=== PATIENT | male | born 1980 | race Asian ===

== ENCOUNTER 2017-07-16 19:46 | Inpatient (IN) | payer SELFPAY ==
[~2017-07-16] VITALS: Ht 188 cm; Wt 83.9 kg
[2017-07-16] MEDS ORDERED: Morphine Sulfate 4mg/ml Inj IM ONE (20:00)
--- NOTE | 2017-07-16 20:47 | Emergency Room Report ---
History of Present Illness General Chief Complaint: Back Pain-No Injury Source: Patient Present Illness HPI 36-year-old male presents to ED for evaluation. Patient complaining of back pain since this morning. Received epidural injection but states since then he' s had increased back pain and weakness in both legs. Pain is 10 out of 10, sharp, radiating down both legs. Denies fevers or chills. Denies chest pain or shortness of breath. Was referred by pain management Dr Sarah. No other aggravating or relieving factors. Denies any other associated symptoms Allergies: Coded Allergies: No Known Allergies (Unverified , 07/16/17) Patient History Past Medical History: none Past Surgical History: none Pertinent Family History: none Social History: Denies: smoking, alcohol use, drug use Immunizations: UTD Reviewed Nursing Documentation: PMH: Agreed; PSxH: Agreed Nursing Documentation-PMH Past Medical History: No Stated History Review of Systems All Other Systems: negative except mentioned in HPI Physical Exam Vital Signs Date Time Temp Pulse Resp B/P (MAP) Pulse Ox O2 Delivery O2 Flow Rate FiO2 07/16/17 19:55 97.3 62 23 123/79 99 Room Air 97.3 Sp02 EP Interpretation: reviewed, normal General Appearance: alert, GCS 15, non-toxic, severe distress Head: normocephalic, atraumatic Eyes: bilateral eye normal inspection, bilateral eye PERRL ENT: hearing grossly normal, normal pharynx, no angioedema, normal voice Neck: full range of motion, supple/symm/no masses Respiratory: chest non-tender, lungs clear, normal breath sounds, speaking full sentences Cardiovascular #1: regular rate, rhythm, no edema Cardiovascular #2: 2+ carotid (R), 2+ carotid (L), 2+ radial (R), 2+ radial (L) , 2+ dorsalis pedis (R), 2+ dorsalis pedis (L) Gastrointestinal: normal bowel sounds, non tender, soft, non-distended, no guarding, no rebound Rectal: deferred Genitourinary: normal inspection, no CVA tenderness, vertebral tenderness Musculoskeletal: gait/station normal, normal range of motion, non-tender Neurologic: alert, oriented x3, responsive, motor strength/tone normal, speech normal, sensory deficit - bilateral LEs Psychiatric: judgement/insight normal, memory normal, mood/affect normal, no suicidal/homicidal ideation Reflexes: 3+ bicep (R), 3+ bicep (L), 3+ tricep (R), 3+ tricep (L), 3+ knee (R) , 3+ knee (L) Skin: normal color, no rash, warm/dry, well hydrated Lymphatic: no adenopathy Procedures Critical Care Time Critical Care Time i. I feel this is a highly complex case requiring extensive working including EKG/Rhythm strip, Xray/CT/US, Blood/urine lab work, repeat exams while in ED, and administration of strong opiates/narcotics for pain control, admission to hospital or close patient follow up. Total time: 30 min bedside evaluation and treatment excludes procedures (EKG). Reason for critical care: back pain, weakness in legs, epidural hematoma, cord compression Possible complications: hypotension, hypertension, ND, shock, arrhythmias, metabolic acidosis, end organ damage, respiratory failure. Interventions: MRI, labs, pain meds, consultation with back surgery Course: patient presenting with back pain, leg weakness s/p epidural injection.MRI shows epidural hematoma from C3 to mid thoracic spine. largest component at T1-T2 with canal stenosis and cord compression. case discussed with Dr Centeno who will take patient to OR Consultations: nursing staff, EMS, family Performed by: Dr Vega Tolerated well condition = serious j. because of unstable vital signs this patient had a condition that could potentially threaten life or limb. I feel this is a critical patient who required my full attention while patient was considered critical. 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 largest component at T1-T2 with severe stenosis and cord compression Labs - pending patient has motor function in his lower extremities, but sensory deficit Dr Sarah (pain management) at bedside; he will admit patient. Dr Centeno contacted and he will take patient to OR tonight I feel this is a highly complex case requiring extensive working including EKG/ Rhythm strip, Xray/CT/US, Blood/urine lab work, repeat exams while in ED, and administration of strong opiates/narcotics for pain control, admission to hospital or close patient follow up. Diagnosis - back pain, epidural hematoma, cord compression Patient admitted to floor in serious condition CT/MRI/US Diagnostic Results CT/MRI/US Diagnostic Results #1: Imaging Test Ordered: MRI C spine Impression C5-C6 osteophytes. epidural hematoma from C3 to mid thoracic CT/MRI/US Diagnostic Results #2: Imaging Test Ordered: MRI T spine Impression epidural hematoma from C3 through mid thoracic spine. T1-T2 severe canal stenosis, mild cord compression CT/MRI/US Diagnostic Results #3: Imaging Test Ordered: MRI L spine Impression no acute process. mild degenerative disease without high grade canal or foraminal stenosis. Last Vital Signs Date Time Temp Pulse Resp B/P (MAP) Pulse Ox O2 Delivery O2 Flow Rate FiO2 07/16/17 20:01 97.3 07/16/17 19:55 62 23 123/79 99 Room Air Status: improved Disposition: ADMITTED INPATIENT Condition: Serious Scripts No Active Prescriptions or Reported Meds Referrals: NOT CHOSEN IPA/,REFERRING (PCP) Issac Vega MD July 16, 2017 20:47
[2017-07-16 21:30] VITALS: BP 125/80
[2017-07-16 22:49] VITALS: BP 130/77
[2017-07-16 23:24] LABS: BASOPHILS % (AUTO) 0.5 % (0.0-2.0); EOSINOPHILS % (AUTO) 0.1 % (0.0-3.0); HEMATOCRIT 44.5 % (42.0-52.0); HEMOGLOBIN 16.9 G/DL (14.2-18.0); MEAN CORPUSCULAR VOLUME 87 FL (80-99); MONOCYTES % (AUTO) 2.8 % (1.0-10.0); NEUTROPHILS % (AUTO) 84.7 % (45.0-75.0); PLATELET COUNT 227 K/UL (150-450); RED BLOOD COUNT 5.14 M/UL (4.70-6.10); RED CELL DISTRIBUTION WIDTH 9.7 % (11.6-14.8); WHITE BLOOD COUNT 9.6 K/UL (4.8-10.8)
[2017-07-17 00:02] LABS: ANION GAP 9 mmol/L (5-15); BLOOD UREA NITROGEN 11 mg/dL (7-18); CALCIUM 9.4 MG/DL (8.5-10.1); CARBON DIOXIDE 27 MMOL/L (21-32); CHLORIDE 103 MMOL/L (98-107); CREATININE 0.8 MG/DL (0.55-1.30); POTASSIUM 3.9 MMOL/L (3.5-5.1); SODIUM 139 MMOL/L (136-145)
[2017-07-17 00:07] LABS: ALANINE AMINOTRANSFERASE 28 U/L (12-78); ALBUMIN 4.3 G/DL (3.4-5.0); ALBUMIN/GLOBULIN RATIO 1.2 (1.0-2.7); ALKALINE PHOSPHATASE 59 U/L (46-116); ASPARTATE AMINO TRANSFERASE 20 U/L (15-37); BILIRUBIN,TOTAL 0.7 MG/DL (0.2-1.0)
[2017-07-17 01:12] VITALS: BP 119/75
--- NOTE | 2017-07-17 01:12 | History and Physical ---
History of Present Illness General Date patient seen: July 17, 2017 Reason for Hospitalization: Back Pain-No Injury Present Illness HPI Pt s/p cervical epidural injection. he developed severe back pain after injection. He called me at 5:30 pm on July 16, 2017 and I asked him to come to ER in [facility].He arrived at 7:30 pm. I arranged with Dr. Vega for emergency MRI, which was done. At this time pt did not show motor deficit but was guarding due to pain and examination was difficult to perform by ER doctor. I personally arrived at bedside and examined the pt after reviewing the MRI. In the meanwhile also Dr. Centeno was contacted and he was willing to come and see the pt in case of emergency surgery. Pt was examined by Dr. Centeno and risk and benefit of sx was d/w him. He had some minor motor weakness in lower extremity with more of the numbness in b/l lower extremity. he felt that his back pain is relieved and feels better with his upper body. He was also able to stand up and walk few steps without problem. So he decided to wait in hospital until tomorrow to see how is it going to change. Allergies: Coded Allergies: No Known Allergies (Unverified , 07/16/17) Medication History No Active Prescriptions or Reported Meds Patient History Healthcare decision maker Resuscitation status Advanced Directive on File Physical Exam General Appearance: WD/WN HEENT: normocephalic, atraumatic Neck: supple Respiratory/Chest: lungs clear Cardiovascular/Chest: normal rate Abdomen: non tender, soft Extremities: normal range of motion, non-tender Neurologic: chute boss II-XII grossly normal, alert, oriented x 3, responsive, sensory deficit - b/l lower extremity to pinprick is diminished Last 24 Hour Vital Signs Date Time Temp Pulse Resp B/P (MAP) Pulse Ox O2 Delivery O2 Flow Rate FiO2 07/16/17 22:49 93 12 130/77 97 Room Air 07/16/17 21:30 99.3 95 15 125/80 98 Room Air 99.3 07/16/17 20:31 99.3 07/16/17 20:01 97.3 07/16/17 19:55 97.3 62 23 123/79 99 Room Air 97.3 Intake and Output 07/16/17 07/17/17 19:00 07:00 Intake Total 1000 ml Balance 1000 ml Intake IV Total 1000 ml Laboratory Tests Test 07/16/17 23:13 White Blood Count 9.6 K/UL (4.8-10.8) Red Blood Count 5.14 M/UL (4.70-6.10) Hemoglobin 16.9 G/DL (14.2-18.0) Hematocrit 44.5 % (42.0-52.0) Mean Corpuscular Volume 87 FL (80-99) Mean Corpuscular Hemoglobin 32.9 PG (27.0-31.0) H Mean Corpuscular Hemoglobin Concent 38.0 G/DL (32.0-36.0) H Red Cell Distribution Width 9.7 % (11.6-14.8) L Platelet Count 227 K/UL (150-450) Mean Platelet Volume 6.0 FL (6.5-10.1) L Neutrophils (%) (Auto) 84.7 % (45.0-75.0) H Lymphocytes (%) (Auto) 12.0 % (20.0-45.0) L Monocytes (%) (Auto) 2.8 % (1.0-10.0) Eosinophils (%) (Auto) 0.1 % (0.0-3.0) Basophils (%) (Auto) 0.5 % (0.0-2.0) Prothrombin Time 10.0 SEC (9.30-11.50) Prothromb Time International Ratio 1.0 (0.9-1.1) Activated Partial Thromboplast Time 25 SEC (23-33) Sodium Level 139 MMOL/L (136-145) Potassium Level 3.9 MMOL/L (3.5-5.1) Chloride Level 103 MMOL/L (98-107) Carbon Dioxide Level 27 MMOL/L (21-32) Anion Gap 9 mmol/L (5-15) Blood Urea Nitrogen 11 mg/dL (7-18) Creatinine 0.8 MG/DL (0.55-1.30) Estimat Glomerular Filtration Rate > 60 mL/min (>60) Glucose Level 100 MG/DL (74-106) Calcium Level 9.4 MG/DL (8.5-10.1) Total Bilirubin 0.7 MG/DL (0.2-1.0) Aspartate Amino Transf (AST/SGOT) 20 U/L (15-37) Alanine Aminotransferase (ALT/SGPT) 28 U/L (12-78) Alkaline Phosphatase 59 U/L (46-116) Total Protein 8.0 G/DL (6.4-8.2) Albumin 4.3 G/DL (3.4-5.0) Globulin 3.7 g/dL Albumin/Globulin Ratio 1.2 (1.0-2.7) Height (Feet): 6 Height (Inches): 2.00 Weight (Pounds): 185 Assessment/Plan Problem List: (1) Back pain ICD Codes: M54.9 - Dorsalgia, unspecified SNOMED: 674736277 Qualifiers: Qualified Codes: M54.6 - Pain in thoracic spine (2) Cord compression ICD Codes: G95.20 - Unspecified cord compression SNOMED: 51712295 (3) Epidural hematoma ICD Codes: S06.4X9A - Epidural hemorrhage with loss of consciousness of unspecified duration, initial encounter SNOMED: 680299038 Assessment/Plan Pt was seen by Dr. Centeno and has decided to wait on surgery. Will admit pt to Med surge Will keep him NPO for possible surgery option IVF 125 ml per hour Fall precautions Neurocheck Q 1 hour Vital signs as protocol KAYE SMITH July 17, 2017 01:12
[2017-07-17] MEDS ORDERED: LR 1000ml 1,000 ML IV SCH (02:00)
[2017-07-17 04:00] VITALS: BP 125/76
--- NOTE | 2017-07-17 04:45 | Consultation ---
DATE OF CONSULTATION: 07/17/2017 TIME: 12:33 a.m. CONSULTING PHYSICIAN: Itz Centeno M.D. CHIEF COMPLAINT: 0Weakness in lower extremities and pain. HISTORY OF PRESENT ILLNESS: This is a 36-year-old gentleman who I visited in the emergency room after a call from Dr. Sarah. The call was received at 11:25 p.m. on 07/16/2017. The physician had performed a epidural steroid injection of the cervical spine and was notified by the patient that he was having progressive pain and Dr. Sarah asked the patient come to the emergency room. An MRI was obtained. There was noted posterior spinal cord epidural hematoma from approximately C7 through T3. The patient had difficulty with urination with possibly some retention. He had mostly pain; however, this was treated with medications and he had numbness in the lower extremities, especially in the left side anterior thigh. The patient was ambulatory. He was evaluated by emergency room physician and I evaluated the patient as soon as I drove into the emergency room. I had a long discussion with the patient. The patient denies any other medical problems. He is in pain. He has not eaten since at least 10-12 hours or had any water at least 10 or 12 hours ago. PAST MEDICAL HISTORY: None. PAST SURGICAL HISTORY: None per chart. The history is obtained from the chart and is as listed in [facility] EHR system. REVIEW OF SYSTEMS: Also negative. PHYSICAL EXAMINATION: GENERAL: The patient is a tall, slender [place] male in no acute distress. There is minimal distress due to pain. The patient is ambulatory, however; has difficulty with urination and has some tension. NEUROLOGIC: The upper extremity demonstrate 5/5 strength except left intraosseous was 4+. Sensation was intact. Bilateral lower extremity strength was 5/5 in the right lower extremity except right EHL, which was 4+ and left hip flexor was 4+, left EHL was 5-. Sensation was slightly diminished in the left groin area and somewhat diminished in the left anterior thigh. Reflexes were 3+ in the quadriceps, 1+ in Achilles, and 1+ in biceps and triceps. Lila signs are negative. There was no clonus and Babinski were downgoing. Pulses were intact. The patient had a small Band-Aid in the cervical thoracic junction from the epidural steroid injection. LABORATORY AND DIAGNOSTIC DATA: MRI personally reviewed by me demonstrates a CT and L-spine with circular mass most likely a fluid collection such as blood noted at the cervical thoracic junction, most likely from C7 down to T3 with most compression of the left side of the spinal cord. There is stenosis noted. The cord had slight change in shape, especially at the T1 level. IMPRESSION: Posterior cervical thoracic hematoma with mild neurologic deficit and possible urinary retention. RECOMMENDATION: Postvoid residual was requested. I discussed with the patient of cervicothoracic laminectomy from C7 through T1 on emergency basis. Risks of surgery include failure to pain, recurrent hematoma and permanent neurologic deficit, which is mild at this point as well as other urinary complications, progressive neurologic deficit despite surgery spinal cord injury. The patient understood the risks and at this point, is holding off from surgery. He is there with a friend who is also aware of the patient's condition. There was no language barrier between with communication with the patient, as the friend also spoke [place] and the patient also spoke [place]. The risks of not performing surgery is permanent neurologic deficit. Alternative surgery are continue to monitor on hourly basis neurologic condition and wait for the hematoma to resolve, which may occur on its own. This was also discussed with the patient and the patient with this point will await and treat nonoperatively. Itz Centeno M.D. DR: TRUPTI JOB#: [id number] CC:
[2017-07-17 08:45] VITALS: BP 115/60
--- NOTE | 2017-07-17 10:00 | General Progress Note ---
Assessment/Plan Assessment/Plan (1) Back pain (2) Cord compression (3) Epidural hematoma Patient will be started on Regular diet and we will order f/u MRI of Cervical and Thoracic spine w/o contrast. Pt seen and examined with Dr. Sarah. Subjective Date patient seen: July 17, 2017 Time patient seen: 08:45 Constitutional: Reports: no symptoms HEENT: Reports: no symptoms Cardiovascular: Reports: no symptoms Respiratory: Reports: no symptoms Gastrointestinal/Abdominal: Reports: no symptoms Genitourinary: Reports: no symptoms Neurologic/Psychiatric: Reports: no symptoms Endocrine: Reports: no symptoms Hematologic/Lymphatic: Reports: no symptoms Allergies: Coded Allergies: No Known Allergies (Unverified , 07/16/17) Subjective Patient is in bed Dr. Sarah evaluating the patient. Patient reports that he is feeling better and his pain has reduced. He also has sensation back to his legs. Dr. Sarah advised patient that he will be starting PT and waiting for neurosurgeon follow up. We will order another MRI of Cervical and Thoracic spine for evaluation of the epidural hematoma. Objective Last 24 Hour Vital Signs Date Time Temp Pulse Resp B/P (MAP) Pulse Ox O2 Delivery O2 Flow Rate FiO2 07/17/17 08:45 98.4 91 20 115/60 97 98.4 07/17/17 04:00 98.2 87 18 125/76 99 98.2 07/17/17 01:40 98.6 93 12 119/75 96 Room Air 98.6 07/17/17 01:12 98.6 93 12 119/75 96 Room Air 98.6 07/16/17 22:49 93 12 130/77 97 Room Air 07/16/17 21:30 99.3 95 15 125/80 98 Room Air 99.3 07/16/17 20:31 99.3 07/16/17 20:01 97.3 07/16/17 19:55 97.3 62 23 123/79 99 Room Air 97.3 Intake and Output 07/16/17 07/17/17 19:00 07:00 Intake Total 1000 ml Balance 1000 ml Intake IV Total 1000 ml # Voids 2 Laboratory Tests 07/16/17 23:13: White Blood Count 9.6, Red Blood Count 5.14, Hemoglobin 16.9, Hematocrit 44.5, Mean Corpuscular Volume 87, Mean Corpuscular Hemoglobin 32.9H, Mean Corpuscular Hemoglobin Concent 38.0H, Red Cell Distribution Width 9.7L, Platelet Count 227, Mean Platelet Volume 6.0L, Neutrophils (%) (Auto) 84.7H, Lymphocytes (%) (Auto) 12.0L, Monocytes (%) (Auto) 2.8, Eosinophils (%) (Auto) 0.1, Basophils (%) (Auto ) 0.5, Prothrombin Time 10.0, Prothromb Time International Ratio 1.0, Activated Partial Thromboplast Time 25, Sodium Level 139, Potassium Level 3.9, Chloride Level 103, Carbon Dioxide Level 27, Anion Gap 9, Blood Urea Nitrogen 11, Creatinine 0.8, Estimat Glomerular Filtration Rate > 60, Glucose Level 100, Calcium Level 9.4, Total Bilirubin 0.7, Aspartate Amino Transf (AST/SGOT) 20, Alanine Aminotransferase (ALT/SGPT) 28, Alkaline Phosphatase 59, Total Protein 8.0, Albumin 4.3, Globulin 3.7, Albumin/Globulin Ratio 1.2 Height (Feet): 6 Height (Inches): 2.00 Weight (Pounds): 185 General Appearance: no apparent distress, alert EENT: PERRL/EOMI, normal ENT inspection Neck: non-tender, normal alignment, supple Cardiovascular: normal rate, regular rhythm Respiratory/Chest: lungs clear, normal breath sounds Abdomen: non tender, soft Extremities: normal range of motion, non-tender Edema: no edema noted Arm (L), no edema noted Arm (R), no edema noted Leg (L), no edema noted Leg (R), no edema noted Pedal (L), no edema noted Pedal (R), no edema noted Generalized Neurologic: alert, oriented x 3, responsive, other - LLE +4/5 in all muscles and RLE 5/5 in all muscles SHO JAIN PMontez July 17, 2017 10:00
--- NOTE | 2017-07-17 11:31 | Diagnostic Imaging Report ---
Indication: Reason For Exam: PAIN Technique: Sagittal T1 and T2 fast spin echo, sagittal STIR, axial T1 and T2 fast spin-echo images of the lumbar spine Comparison: none Findings: There are 5 nonrib-bearing lumbar-type vertebral bodies, assuming 12 ribs. There is no evidence of acute fracture or malalignment. No evidence of spondylolisthesis. There are Modic type generative changes about the endplates at L5-S1. Otherwise, bone marrow signal is homogeneous. The conus medullaris terminates at the level of L1. Visualized cord and cauda equina nerve roots are unremarkable in signal and morphology. There is overall mild degenerative disc disease with disc desiccation at L2-L3 and L5-S1 where there is some small disc bulges. There is no significant central canal stenosis or foraminal narrowing. Visualized visceral abdominal structures are unremarkable. Aorta normal in caliber. IMPRESSION: No evidence of acute fracture or malalignment. Overall mild degenerative change without significant central canal or foraminal stenosis. This corresponds with the [facility] preliminary report.
--- NOTE | 2017-07-17 11:57 | Diagnostic Imaging Report ---
Indication: Reason For Exam: PAIN status post epidural injection. Technique: 1. MRI cervical spine: 3 plane localizer; Sagittal T1 and T2 fast spin echo, sagittal STIR; axial T2; axial 3-D cosmic ASPIR. 2. MRI thoracic spine: Three-plane localizer and counting sagittal and coronal T1 sequences; Sagittal T1 and T2 fast spin echo, sagittal STIR, axial T1 and T2 fast spin-echo images of the lumbar spine Comparison: none Findings: There are 12 rib-bearing thoracic vertebral bodies. There is no evidence of acute fracture or traumatic malalignment. Bone marrow signal is homogeneous. There is abnormal T1 isointense/T2 heterogeneously hyperintense epidural collection spanning from the level of C3 to the mid thoracic spine most likely representing an acute epidural hematoma given history of recent epidural injection. The largest component of this collection is at T1/T2 where there is severe associated canal stenosis and mild cord compression, with the cord displaced anteriorly and towards the right (series 8 image #4). There is no definite focal cord signal abnormality at this time. The subdural collection results in moderate canal stenosis from C4 to T1 and from T2 to T3. Also results in very minimal canal narrowing from T4 to T7. Small right C5-C6 uncovertebral joints-osteophytes cause mild foraminal narrowing at this level. Imaged visceral structures of the neck, chest and abdomen are grossly unremarkable. Imaged posterior fossa unremarkable. No definite abnormality seen at the craniocervical junction. The aorta is normal in caliber. Imaged portions of the lungs are grossly clear. Portions of the liver, spleen and kidneys grossly unremarkable. IMPRESSION: Findings compatible with an acute epidural hematoma spanning from the level of C3 to the mid thoracic spine. Largest component is at T1-T2 where there is associated severe canal stenosis and mild cord compression as detailed above. Moderate canal stenosis from C4-T1 and is T2-T3. No definite focal cord signal abnormality noted at this time. This corresponds with the preliminary report. Critical findings were reported to the emergency room physician by the overnight radiologist, as documented in the preliminary report.
[2017-07-17 11:59] VITALS: BP 121/71
--- NOTE | 2017-07-17 14:26 | Diagnostic Imaging Report ---
EXAMS: 1. MRI OF THE CERVICAL SPINE WITHOUT CONTRAST 2. MRI OF THE THORACIC SPINE WITHOUT CONTRAST INDICATION: Neck pain. No evidence of epidural hematoma status post epidural injection. Follow-up exam. Technique: 1. MRI cervical spine: Three plane localizer; Sagittal T1 and T2 fast spin echo, sagittal STIR; axial T2; axial 3-D cosmic ASPIR; coronal T2 fast spin echo. 2. MRI thoracic spine: Three-plane localizer and counting sagittal T1; Sagittal T1 and T2 fast spin echo, sagittal STIR, axial T1 and T2 fast spin-echo images of the thoracic spine Comparison: 07/16/2017: 20:53 Findings: Persistent abnormal epidural collection spanning from the mid cervical to the mid thoracic spine again noted, again, most likely represents an epidural hematoma given history of prior epidural injection. The collection remains T1 isointense with slight interval decrease in T2 signal hyperintensity likely related to evolving blood products. The extent and thickness of the collection is slightly decreased when compared to the prior exam. For example the areas of the collection in the region of the upper/mid cervical spine is decreased, previously measuring approximately 4 mm in thickness at the level of C4, currently measuring approximately 1.9 mm at the same level on today's exam. The largest component of this collection is again noted at T1/T2. This is slightly decreased compared to the prior exam. For example it measured approximately 1.9 cm in thickness on sagittal view previously and currently measures approximately 1.1 cm in thickness. However there is still severe associated canal stenosis and mild cord compression at this level, with lack of CSF signal anterior to the cord on axial views. There is some pulsation artifact noted on sagittal images on the thoracic spine study. No definite focal cord signal abnormality seen at this time. There is overall decreased canal stenosis in the cervical and thoracic spines above and below the level of the thickest portion of the epidural hematoma, now minimal to mild (previously moderate). Small right C5-C6 uncovertebral joint osteophytes again noted to cause mild foraminal narrowing at this level. There is no evidence of acute fracture or traumatic malalignment. Bone marrow signal is homogeneous. Imaged visceral structures of the neck, chest and abdomen are grossly unremarkable. Imaged posterior fossa unremarkable. No definite abnormality seen at the craniocervical junction. The aorta is normal in caliber. Imaged portions of the lungs are grossly clear. Portions of the liver, spleen and kidneys grossly unremarkable. IMPRESSION: Persistent abnormal epidural collection most likely representing an acute epidural hematoma given history of prior epidural injection. Overall the collection is slightly decreased in craniocaudal extent and thickness, with overall slight interval decrease local mass effect compared to exam approximately 15 hours prior. Largest component of the likely epidural hematoma is again noted at T1-T2 where there is slightly decreased but persistent associated severe canal stenosis and mild cord compression. No definite focal cord signal abnormality noted at this time. Clinical correlation and follow-up exam recommended.
[2017-07-17 16:20] VITALS: BP 114/69
[2017-07-17] MEDS ORDERED: LR 1000ml ONE (17:13)
[2017-07-17] MEDS ORDERED: Tubing IV Secondary IV ONE (17:44)
--- NOTE | 2017-07-18 08:15 | Discharge Summary ---
DATE OF ADMISSION: 07/16/2017 DATE OF DISCHARGE: 07/17/2017 The patient yesterday around 4 p.m. had cervical epidural injection which consequently had severe back pain and was brought in immediately to the hospital emergency room. An MRI was done which showed epidural hematoma causing mild cord compression at T1-T2. Spine Surgery was called. Dr. Centeno came to see the patient and option for surgery was discussed with the patient. The patient decided to take the chance and wait until the morning to see how his symptoms is going to be. Last night he had some mild weakness at left lower extremity 4+ at the hip in flexion, but he had mostly sensory loss at his perineum and his bilateral lower extremity. Today morning his numbness was gone and he felt his legs and his perineum as other sides of his body. He felt very strong and able to walk. Physical therapy was called to evaluate the patient. He could not have a steady walk due to some dizziness and not walking since yesterday as per Physical Therapy , which I talked to him personally. He suggested the patient can be discharged and does not need any cane or any walker. He needs physical therapy to work on his skills to be strengthened out. MRI also was repeated today morning which showed slightly remove of the hematoma at the site of T1-T2 especially and less compression. Generally his symptoms got better and his MRI also showed improvement. Bladder scan after urination was 28 mL today afternoon. I discussed also with Dr. Centeno and he does not think at this time also surgery is anymore warranted since we already have waited until now and the patient can mostly probably recover by physical therapy and self removal of the hematoma. The patient also wants to go home and does not want to stay in the hospital, although I insisted that he can stay another day or two to have physical therapy but he wants to go home. It was recommended by other consultants on the case. 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 I warned the patient that due to his imbalance he has to be careful not to leaf size picker dangerous items like hot water or knife, that if in case he loses his balance, injure himself. Also I warned him that make sure that he always hold somewhere and try to just work slowly in the beginning to see how much he can tolerate. He reports that he has people that work for him, so in the beginning he will ask for some more help although it really caused him some more money financially which hopefully will be compensated later, so at this time, hospitalization course was fair and uneventful. The patient improved tremendously and I will follow up with him on Thursday in my office to examine him for his neurologic signs and also I instructed him to call me anytime from now until Thursday if he feels any difference in his neurologic status. Charu Sarah M.D. DR: Linus JOB#: [id number] CC:
--- NOTE | 2017-07-20 11:00 | Discharge Summary ---
Discharge Summary Discharge Summary Discharge Summary ADDENDUM to dc summary: DISCHARGE DIAGNOSIS BACK PAIN EPIDURAL HEMATOMA ( POSTERIOR CERVICAL AND THORACIC) MILD CORD COMPRESSION T1-T2 Kayla Varghese NP ([place]) July 20, 2017 11:00
== END 2017-07-17 17:45 | disposition home or self-care (01) | DRG 920 ==
LOC: EMR 20:13 → 4W 23:05 → EDBEDREQ 07-17 00:27
DX: M96.840 Postprocedural hematoma of a musculoskeletal structure following a musculoskeletal system procedure (principal); G95.29 Other cord compression; X58.XXXA Exposure to other specified factors, initial encounter; M48.04 Spinal stenosis, thoracic region; Y84.8 Other medical procedures as the cause of abnormal reaction of the patient, or of later complication, without mention of misadventure at the time of the procedure; R53.1 Weakness
CPT/HCPCS: 36415; 72141; 72146; 72148; 80053; 85025; 85610; 85730; 86850; 86900; 86901; 99285; 99291